=== PATIENT | female | born 1930 | race Caucasian/White ===

== ENCOUNTER 2017-09-18 12:12 | Outpatient (CLI) | payer OTHER, MEDICARE | END 2017-09-18 19:39 | disposition home or self-care (01) | LOC: SMA 12:12 | PROVIDERS: ATTEND Obstetrics & Gynecology Gynecology | DX: Z12.31 Encounter for screening mammogram for malignant neoplasm of breast (principal) | CPT/HCPCS: 77067 ==

== ENCOUNTER 2018-11-19 12:54 | Outpatient (CLI) | payer OTHER, MEDICARE | END 2018-11-19 19:54 | disposition home or self-care (01) | LOC: SMA 12:54 | DX: Z12.31 Encounter for screening mammogram for malignant neoplasm of breast (principal) | CPT/HCPCS: 77067 ==

== ENCOUNTER 2020-04-27 10:23 | Outpatient (CLI) | payer OTHER, MEDICARE | END 2020-04-27 19:16 | disposition home or self-care (01) | LOC: SMA 10:23 | PROVIDERS: ATTEND Internal Medicine | DX: Z12.31 Encounter for screening mammogram for malignant neoplasm of breast (principal); I70.0 Atherosclerosis of aorta; M47.814 Spondylosis without myelopathy or radiculopathy, thoracic region; M81.0 Age-related osteoporosis without current pathological fracture; I10 Essential (primary) hypertension | CPT/HCPCS: 71046-TC; 77067 ==